=== PATIENT | female | born 2000 | race Caucasian/White ===

== ENCOUNTER 2022-11-03 16:32 | Inpatient (IN) ==
[2022-11-03] MEDS ORDERED: AMPICILLIN/SULBACTAM SOD 3,000 MG in 0.9 % SODIUM CHLORIDE 100 ML IV STA (17:42)
--- NOTE | 2022-11-03 17:56 | Emergency Department Note ---
Impression & Plan Facial cellulitis, Myositis, COVID ED Provider Note CHIEF COMPLAINT: Facial swelling HISTORY OF PRESENTING ILLNESS: This is a 22-year-old female who presents to the emergency department by private vehicle with complaint of left-sided facial pain and swelling that started last night and has been getting progressively worse today. Patient denies any injuries to the area and denies any known dental issues. She does note that she had 4 wisdom teeth removed a few weeks ago over winter, but has not had any issues since the surgery. She currently notes her pain level an 8/10 and describes it as aching and tightness. She denies any fevers or chills. She denies any sore throat or tightness in the throat and has not had any difficulty swallowing or breathing. She denies any swelling or pain around the gums or teeth and has not had any foul discharge in the mouth. She denies any known injury to the area preceding the infection. She does also note that she has been having some intermittent chest pain for the past 1 year, she did go to [facility] today regarding this and her facial swelling and had testing and lab work done for the chest pain work-up. She states that she passed out while having her blood drawn, she states she began to feel hot and sweaty and then started to pass out. No injuries. She denies any chest pain currently. She has not had any shortness of breath. REVIEW OF SYSTEMS: A complete 10 point review of systems was reviewed with the patient with pertinent positives and negatives as per history of present illness. All else were negative. PAST MEDICAL HISTORY: No significant past medical history, history of wisdom tooth extraction SOCIAL HISTORY: Lives at home, she is a [employer] student, denies tobacco use ALLERGIES: No known allergies PHYSICAL EXAM: CONSTITUTIONAL: Pleasant and cooperative. Nontoxic-appearing and in no acute distress. Well appearing and well nourished. HEENT: Normocephalic, atraumatic. PERRL, EOMI. TMs normal. Pharynx normal. Significant left-sided facial swelling which extends throughout the maxillary region to the jawline, with overlying erythema and warmth to the touch, tender to palpation. Indurated but no notable fluctuance, no pointing or drainage. No swelling or signs of abscess within the mouth, normal dentition. Mild trismus. NECK: Supple, full active range of motion without discomfort. No cervical adenopathy. No nuchal rigidity or meningismus. Trachea midline. RESPIRATORY: Clear to auscultation bilaterally with no wheezing, crackles, rhonchi or stridor. Equal expansion bilaterally. CARDIOVASCULAR: Regular rate and rhythm with no murmurs, rubs or gallops. Normal peripheral perfusion. No edema. GASTROINTESTINAL: Soft, nontender, nondistended. Bowel sounds present in all quadrants. MUSCULOSKELETAL: Full range of motion of all joints without discomfort. INTEGUMENTARY: No rash or other significant dermatologic conditions noted. NEUROLOGIC: Alert and oriented X 4 with normal affect. Cranial nerves II-XII grossly intact, no facial droop. No focal neurologic deficits noted. Normal speech. Normal gait observed. ED COURSE AND MEDICAL DECISION MAKING: CC: Patient presenting with complaint of facial swelling DIFFERENTIAL DIAGNOSIS: Includes, but not limited to facial cellulitis, dental abscess, Ludwigs angina, parotitis, osteomyelitis, sinus infection, peritonsillar abscess, myositis, vasovagal syncope, dehydration, electrolyte abnormality, cardiac causes, PE, neurologic causes, thyroid disorder, among others. INTERPRETATION OF LABS: Leukocytosis, no anemia, normal platelets, no significant electrolyte abnormalities, normal renal function, elevated T. bili with otherwise normal liver enzymes. Troponin negative. TSH within normal limits. UA appears contaminated with no signs of UTI. Urine negative. COVID test positive. EKG: Indication was chest pain. Shows normal sinus rhythm with sinus arrhythmia with a rate of 73 bpm, incomplete right bundle branch block, no ST elevation or depression, no ectopy by my interpretation. No previous EKGs available for comparison. MEDICATION RECONCILIATION: I attest that I [facility]. INITIAL VITAL SIGNS REVIEW: I reviewed the patient's initial vital signs and interpret them as follows: T: Afebrile; BP: Mildly hypertensive; HR: Within normal limits; RR: Within normal limits; Pulse Ox: Within normal limits on room air. MDM SUMMARY: Patient was evaluated at bedside, history and physical exam performed. Patient is alert and oriented, in no acute distress, resting calmly in stretcher. She is afebrile and nontoxic-appearing and hemodynamically stable. There is significant left-sided facial swelling with erythema and warmth, mild trismus, airway is patent. No significant swelling noted in the neck, no meningismus on exam. No adenopathy. Patient was primarily sent to ED from [facility] with concerns for the facial swelling. She was also being evaluated there for some chest pain ongoing for a year, and had a brief syncopal episode during outpatient lab draw today. She denies any chest pain currently. EKG was reviewed and shows normal sinus rhythm with no acute ischemic changes. Cardiac monitoring: An order was placed for continuous cardiac monitoring. The monitor shows a rate of 80s with normal sinus rhythm. Orders were placed for labs including troponin, UA and urine , chest x- ray, IV Unasyn to treat for cellulitis, CT soft tissue neck with IV contrast to evaluate for facial/jaw swelling. Patient discussed with Dr. Aldrich, who agrees with my assessment, plan, and disposition. Labs and imaging reviewed, labs notable for leukocytosis with no other significant abnormalities. Troponin is negative. TSH was within normal limits. She is not . COVID test was incidentally found to be positive. Chest x-ray was clear with no acute cardiopulmonary abnormalities. I have a low suspicion for acute coronary syndrome or PE related to her ongoing chest pain for the past year. Her syncopal episode was most likely vasovagal due to her blood draw. CT imaging demonstrates moderate left facial and upper neck inflammation consistent with cellulitis, with thickening of the left platysma muscle and enlargement of the left masseter muscle concerning for infectious myositis. No abscess. Airway patent. Patient reassessed multiple times throughout ED stay, she was noted to have a low-grade fever of 37.8 on reassessment of vital signs and feels that her pain is worsening. By my assessment, her left-sided facial swelling appears slightly worse and her trismus has slightly worsened as well. Given the abrupt development of the patient's facial swelling and apparent clinical worsening over the past few hours, I did feel that she warranted admission for close observation and continued IV antibiotics. I spoke on the phone with Dr. Ballesteros, oral surgery, who agreed that the patient should be admitted and he is happy to consult on her case and will see her in the morning. I spoke with Dr. Cm, [facility] Hospitalist, who agrees to evaluate the patient for admission. The patient was updated on all results and plan for admission, she was agreeable to this plan. The patient was stable at the time of admission. The chart was completed utilizing Dragon Speech voice recognition software. Grammatical errors, random word insertions, pronoun errors, and incomplete sentences are an occasional consequence of this system due to software limitations, ambient noise, and hardware issues. Any formal questions or concerns about the content, text, or information contained within the body of this dictation should be directly addressed to the nurse practitioner for clarification. Past Med/Surg History Medical History (Updated 11/04/22 @ 01:02 by KYLE Garcia) No significant past medical history Surgical History (Updated 11/03/22 @ 23:06 by Tasha Cm DO) History of wisdom tooth extraction Family History (Updated 11/03/22 @ 23:06 by Tasha Cm DO) Other No significant family history Social History (Updated 11/03/22 @ 23:06 by Tasha Cm DO) Smoking Status: Never smoker Second Hand Exposure: No; Do You Dip or Chew Tobacco: No; Tobacco Cessation Education Requested by Patient: No Hx Alcohol Use: Yes Alcohol type: wine Hx Substance Use: No Preferred Language: [place] Communication Ability: Effective Site Monitor Required: No Beliefs That Will Affect Care: None Current Living Situation: Other Current Living Situation Comment: Apartment with roommates Other Information That Helps Us Care for You: No Feels Safe at Home: Yes Safety Concerns: Feels Safe At This Time Assistive Devices: None Allergies Allergies Allergy/AdvReac Type Severity Reaction Status Date / Time No Known Allergies Allergy Unverified 11/03/22 21:03 Home Meds Home Medications Medication Instructions Recorded Confirmed No Known Home Medications 11/03/22 11/03/22 Results & Data (ED) Vital Signs Vital Signs - 24 hr 11/03/22 16:38 11/03/22 19:19 11/03/22 20:30 Temperature 36.6 C 37.8 C H Temperature Source Temporal Artery Scan Oral Pulse Rate 85 Pulse Rate [Apical] 72 Respiratory Rate 18 12 Respiratory Effort / Characteristics Non-Labored Spontaneous Non-Labored Spontaneous Respiratory Depth Normal Normal Respiratory Pattern Regular Blood Pressure 140/80 Blood Pressure [Left Arm] 108/57 L Blood Pressure Mean 100 Blood Pressure Mean [Left Arm] 74 Blood Pressure Position Sitting Pulse Oximetry 99 100 Oxygen Delivery Method Room Air Room Air Sepsis Recent Fever Within 48 Hours No Sepsis New/Unexplained Change in Mental Status No Sepsis Action Taken by Nursing No Action Required 11/03/22 20:30 11/03/22 20:33 Temperature Temperature Source Pulse Rate 82 Pulse Rate [Apical] 88 Respiratory Rate 19 18 Respiratory Effort / Characteristics Non-Labored Spontaneous Respiratory Depth Normal Respiratory Pattern Regular Blood Pressure Blood Pressure [Left Arm] 116/83 Blood Pressure Mean Blood Pressure Mean [Left Arm] 94 Blood Pressure Position Pulse Oximetry 99 99 Oxygen Delivery Method Room Air Room Air Sepsis Recent Fever Within 48 Hours Sepsis New/Unexplained Change in Mental Status Sepsis Action Taken by Nursing Laboratory Data 11/03/22 18:16 11/03/22 18:16 Lab Results 11/03/22 11/03/22 11/03/22 Range/Units 18:16 18:16 18:16 WBC 12.61 H (4.8-10.8) K/ul RBC 4.53 (4.20-5.40) M/uL Hgb 13.5 (12.0-16.0) g/dl Hct 39.4 (37.0-47.0) % MCV 87.0 (80.0-100.0) fL MCH 29.8 (25.0-34.0) pg MCHC 34.3 (32.0-36.0) g/dL RDW Std Deviation 40.8 (36.4-46.3) fL RDW Coeff of Gordon 13.0 (11.5-14.5) % Plt Count 281 (130-400) K/uL MPV 10.4 (9.4-12.4) fL Immature Gran % (Auto) 0.4 % Neut % (Auto) 76.7 % Lymph % (Auto) 13.0 % [place] % (Auto) 9.4 % Eos % (Auto) 0.1 % Baso % (Auto) 0.4 % Neut # (Auto) 9.67 H (1.40-6.50) K/uL Lymph # (Auto) 1.64 (1.2-3.4) K/uL [place] # (Auto) 1.19 H (0.11-0.59) K/uL Eos # (Auto) 0.01 (0-0.50) K/uL Baso # (Auto) 0.05 (0-0.2) K/uL Immature Gran # (Auto) 0.05 (0.01-0.20) K/uL Sodium 137 (136-145) mmol/L Potassium 3.8 (3.5-5.1) mmol/L Chloride 106 (98-107) mmol/L Carbon Dioxide 26 (21-32) mmol/L Anion Gap 5 (3-11) BUN 9 (6-23) mg/dl Creatinine 0.71 (0.6-1.2) mg/dl Est Cr Clr Drug Dosing 103.7 ml/min Est GFR ( Amer) 141.1 ml/min Est GFR (Non-Af Amer) 121.8 ml/min BUN/Creatinine Ratio 12.7 (10-20) Glucose 103 H (70-99(Fasting)) mg/dl Calcium 9.9 (8.5-10.1) mg/dl Total Bilirubin 1.9 H (0.2-1.0) mg/dl AST 14 (13-39) U/L ALT 8 (7-52) U/L Alkaline Phosphatase 62 (34-104) U/L Troponin I High Sens < 2.3 (0-14) pg/ml Total Protein 7.5 (6.0-8.3) gm/dl Albumin 4.5 (3.4-5.0) gm/dl Globulin 3.0 (2.5-4.0) gm/dl Albumin/Globulin Ratio 1.5 (0.9-2) TSH 1.108 (0.300-4.500) uIu/ml Administered Medications Ampicillin Sodium/Sulbactam Sodium 3,000 mg/ Sodium Chloride 108 mls @ 200 mls/hr IV Q6H CHERYLE; Protocol Stop: 11/14/22 00:00 Last Admin: 11/04/22 00:43 Dose: 200 mls/hr Documented By: MARA Lactated Ringer's (Lr) 1,000 mls @ 80 mls/hr IV .[id number] CHERYLE Stop: 11/04/22 11:47 Last Infusion: 11/04/22 00:44 Dose: 0 mls/hr Documented By: Admin: 11/03/22 23:18 Dose: 80 mls/hr Documented By: MARA Discontinued Medications Ampicillin Sodium/Sulbactam Sodium 3,000 mg/ Sodium Chloride 108 mls @ 200 mls/hr IV NOW STA; Protocol Stop: 11/03/22 18:14 Last Infusion: 11/03/22 19:50 Dose: 0 mls/hr Documented By: breaster: 11/03/22 18:45 Dose: 200 mls/hr Documented By: KACIK Sodium Chloride (Nss 1000ml) 1,000 mls @ 999 mls/hr IV .Q1H1M ONE Stop: 11/03/22 21:38 Last Infusion: 11/03/22 23:53 Dose: 0 mls/hr Documented By: Admin: 11/03/22 21:18 Dose: 999 mls/hr Documented By: MED Sodium Chloride (Nss 1000ml) 1,000 mls @ 125 mls/hr IV .Q8H CHERYLE Stop: 12/03/22 20:44 Last Admin: 11/03/22 23:53 Dose: Not Given Documented By: YOSEPH Ioversol (Optiray 350 100ml) 87 ml IV ONCE ONE Stop: 11/03/22 19:28 Last Admin: 11/03/22 19:28 Dose: 87 ml Documented By: [facility] Ketorolac Tromethamine (Ketorolac Tromethamine 15 Mg/Ml Vial) 15 mg IV NOW STA Stop: 11/03/22 20:39 Last Admin: 11/03/22 21:21 Dose: 15 mg Documented By: [facility] Imaging Data Radiologist's Impression: Soft Tissue Neck CT 11/03/22 17:42 CT OF THE NECK WITH IV CONTRAST CLINICAL HISTORY: left facial swelling/cellulitis COMPARISON STUDY: No previous studies for comparison. TECHNIQUE: Following IV administration of 87 mL of Optiray, helical axial images of the neck were obtained. Sagittal and coronal reconstructions were viewed. Automated exposure control was utilized for the study. A dose lowering technique was utilized adhering to the principles of ALARA. CT DOSE: 297.01 mGy.cm FINDINGS: Visualized portions of the intracranial contents are unremarkable. The sinuses are clear. Mastoid air cells are clear. Parotid and submandibular glands are normal. The epiglottis is normal. There is moderate left inferior facial inflammation with subcutaneous stranding and asymmetric thickening of the left platysma muscle. There is fluid deep to the left platysma muscle. Asymmetric enlargement and hypodensity within left masseter muscle is noted. There is no rim-enhancing fluid collection to suggest an abscess. There are findings suggestive of relatively recent wisdom tooth removal. There is no soft tissue gas within the neck. The visualized airway is patent. Lung apices are clear. Major vasculature of the neck is patent. Prominent left cervical lymph nodes are likely reactive. IMPRESSION: Findings suggestive of relatively recent wisdom tooth removal. Moderate left facial and upper neck inflammation consistent with cellulitis with asymmetric thickening of the left platysma muscle, adjacent fluid and enlargement of the left masseter muscle which may reflect an infectious myositis. No rim-enhancing fluid collection to suggest abscess. ACT 112: Negative or not required by law. Electronically signed by: Zachery Dooley M.D. 11/03/2022 7:46 PM Chest X-Ray 11/03/22 17:46 XR chest 1V portable CLINICAL HISTORY: Atypical chest pain. COMPARISON STUDY: No previous studies for comparison. FINDINGS: Lung volumes are normal. Lungs are clear. There is no pneumothorax or pleural effusion. Cardiac size is normal. Mediastinal contours are normal. There is no evidence for pulmonary edema. IMPRESSION: No acute cardiopulmonary findings. ACT 112: Negative or not required by law. Electronically signed by: Zachery Dooley M.D. 11/03/2022 6:11 PM Discharge Plan Visit Data Chief Complaint: Dental/Oral Stated Complaint: REF BY DOC,JAW SWOLLEN,HEART PAIN ED Provider: Damien Aldrich ED Midlevel Provider: Coby Downs Discharge Problem: Facial cellulitis, Myositis, COVID Patient Disposition: Admitted As Inpatient Condition: Good Discharge Instructions Interventions: ED Discharge Assessment Last Done: 11/03/22 22:42
--- NOTE | 2022-11-03 18:13 | XRay Report ---
XR chest 1V portable CLINICAL HISTORY: Atypical chest pain. COMPARISON STUDY: No previous studies for comparison. FINDINGS: Lung volumes are normal. Lungs are clear. There is no pneumothorax or pleural effusion. Car diac size is normal. Mediastinal contours are normal. There is no evidence for pulmonary edema. IMPRESSION: No acute cardiopulmonary findings. ACT 112: Negative or not required by law. Electronically signed by: Zachery Dooley M.D. 11/03/2022 6:11 PM
[2022-11-03 18:40] LABS: Basophils # (auto) 0.05 K/uL (0-0.2); Basophils % (auto) 0.4 %; Eosinophils # (auto) 0.01 K/uL (0-0.50); Eosinophils % (auto) 0.1 %; Hematocrit (blood only) 39.4 % (37.0-47.0); Hemoglobin 13.5 g/dl (12.0-16.0); Immature Granulocytes # (auto) 0.05 K/uL (0.01-0.20); Immature Granulocytes % (auto) 0.4 %; Lymphocytes # (auto) 1.64 K/uL (1.2-3.4); Mean Corpuscular Hemoglobin 29.8 pg (25.0-34.0); Mean Corpuscular Hgb Conc 34.3 g/dL (32.0-36.0); Mean Platelet Volume 10.4 fL (9.4-12.4); Monocytes # (auto) 1.19 K/uL (0.11-0.59); Monocytes % (auto) 9.4 %; Neutrophils # (auto) 9.67 K/uL (1.40-6.50); Neutrophils % (auto) 76.7 %; Platelet Count 281 K/uL (130-400); RDW Standard Deviation 40.8 fL (36.4-46.3); Red Blood Count 4.53 M/uL (4.20-5.40); White Blood Count 12.61 K/ul (4.8-10.8)
[2022-11-03 19:06] LABS: Alanine Aminotransferase 8 U/L (7-52); Albumin Globulin Ratio 1.5 (0.9-2); Albumin Level 4.5 gm/dl (3.4-5.0); Alkaline Phosphatase 62 U/L (34-104); Aspartate Aminotransferase 14 U/L (13-39); BUN Creatinine Ratio 12.7 (10-20); Bilirubin,Total 1.9 mg/dl (0.2-1.0); Blood Urea Nitrogen 9 mg/dl (6-23); Calcium 9.9 mg/dl (8.5-10.1); Carbon Dioxide 26 mmol/L (21-32); Creatinine Clr Calc Pharmacy 103.7 ml/min; Est GFR (African American) 141.1 ml/min; Est GFR (Non-African American) 121.8 ml/min; Glucose 103 mg/dl (70-99(Fasting)); Total Protein 7.5 gm/dl (6.0-8.3)
[2022-11-03 19:22] LABS: Appearance Urine Clear (Clear); Bacteria Urine Automated Negative (Negative); Bilirubin Urine Negative (Negative); Blood Urine Negative (Negative); Color Urine Yellow; Glucose Urine UA Negative (Negative); Ketones Urine Negative (Negative); Leukocyte Esterase Urine Trace (Negative); Nitrite Urine Negative (Negative); Protein Urine Negative (Negative); Urobilinogen Urine Negative (Negative)
[2022-11-03] MEDS ORDERED: OPTIRAY 350 100ml IV ONE (19:27)
[2022-11-03 19:32] LABS: Anion Gap 5 (3-11); Chloride 106 mmol/L (98-107); Potassium 3.8 mmol/L (3.5-5.1); Sodium 137 mmol/L (136-145)
[2022-11-03 19:35] LABS: Troponin I High Sensitivity < 2.3 pg/ml (0-14)
[2022-11-03 19:45] LABS: Pregnancy Test, Urine Negative (Negative)
--- NOTE | 2022-11-03 19:49 | CT Scan Report ---
CT OF THE NECK WITH IV CONTRAST CLINICAL HISTORY: left facial swelling/cellulitis COMPARISON STUDY: No previous studies for comparison. TECHNIQUE: Following IV administration of 87 mL of Optiray, helical axial images of the neck were ob tained. Sagittal and coronal reconstructions were viewed. Automated exposure control was utilized f or the study. A dose lowering technique was utilized adhering to the principles of ALARA. CT DOSE: 297.01 mGy.cm FINDINGS: Visualized portions of the intracranial contents are unremarkable. The sinuses are clear. Mastoid air cells are clear. Parotid and submandibular glands are normal. The epiglottis is normal. T here is moderate left inferior facial inflammation with subcutaneous stranding and asymmetric thicken ing of the left platysma muscle. There is fluid deep to the left platysma muscle. Asymmetric enlargem ent and hypodensity within left masseter muscle is noted. There is no rim-enhancing fluid collection to suggest an abscess. There are findings suggestive of relatively recent wisdom tooth removal. There is no soft tissue gas within the neck. The visualized airway is patent. Lung apices are clear. Major vasculature of the neck is patent. Prominent left cervical lymph nodes are likely reactive. IMPRESSION: Findings suggestive of relatively recent wisdom tooth removal. Moderate left facial and upper neck inflammation consistent with cellulitis with asymmetric thickening of the left platysma mu scle, adjacent fluid and enlargement of the left masseter muscle which may reflect an infectious myos itis. No rim-enhancing fluid collection to suggest abscess. ACT 112: Negative or not required by law. Electronically signed by: Zachery Dooley M.D. 11/03/2022 7:46 PM
[2022-11-03] MEDS ORDERED: SODIUM CHLORIDE 0.9% 1000ML 1,000 ML IV ONE (20:38)
[2022-11-03] MEDS ORDERED: KETOROLAC TROMETHAMINE 15 MG/ML VIAL IV STA (20:38)
[2022-11-03] MEDS ORDERED: SODIUM CHLORIDE 0.9% 1000ML 1,000 ML IV SCH (20:45)
--- NOTE | 2022-11-03 20:51 | History & Physical Report ---
Date of Service November 03, 2022 Assessment & Plan (1) Myositis: Plan: 22yo female with recent history of wisdom teeth extraction x 4 approximately 2 weeks ago presenting with left sided facial pain and swelling. Patient afebrile, HD stable, overall non-toxic in appearance. She does have significant swelling and erythema of her left face with some tenderness of left neck as well. WBC=12.61 Patient is POSITIVE for Covid-19 which may be cause of her possible myositis CT as above with swelling, possible infectious myositis -Admit to medical -Unasyn 2gm IV q 6 -Toradol PRN pain -Tylenol PRN fever -OMFS Consultation appreciated (2) COVID: Plan: Patient is POSITIVE for Covid-19 infection. Afebrile, no respiratory complaints at present. Possible cause for myositis -Maintain isolation -Monitor respiratory status -Tylenol PRN History of Present Illness Chief Complaint: Left facial swelling Primary Care Provider: Provider Outside Elise Reis is a 22yo female with recent extraction of 4 impacted wisdom teeth - performed approximately 2 months ago in [place], [place]. She reports that the surgery went well with no complications. She did state that she had ongoing oral pain at the extraction sites for approximately one month after her surgery. Last night 11/02/22 around 23:00 she developed some pain on the left side of her face. She noticed some swelling that started early this morning 11/03/22 around 02:00. Her swelling has progressed. She has some difficulty opening her mouth fully. She had some subjective fevers as well. Denies chest pain, cough, SOB, abdominal pain, nausea, vomiting, diarrhea or constipation. No pain or difficulty swallowing. No change in voice. No numbness or swelling of her mouth, throat or sublingual area. Upon arrival to the ER she is afebrile, HD stable, NAD. ER Course: Unasyn NSS x 1L Toradol 15mg Allergies Allergy/AdvReac Type Severity Reaction Status Date / Time No Known Allergies Allergy Unverified 11/03/22 21:03 Home Medications Medication Instructions Recorded Confirmed Type No Known Home Medications 11/03/22 11/03/22 History Past Med/Surg History Medical History (Updated 11/03/22 @ 23:14 by Tasha Cm DO) No significant past medical history Surgical History (Updated 11/03/22 @ 23:06 by Tasha Cm DO) History of wisdom tooth extraction Family History (Updated 11/03/22 @ 23:06 by Tasha Cm DO) Other No significant family history Social History (Updated 11/03/22 @ 23:06 by Tasha Cm DO) Smoking Status: Never smoker Hx Alcohol Use: No Hx Substance Use: No Preferred Language: Spanish Feels Safe at Home: Yes Review of Systems Review of Systems: All systems reviewed & are unremarkable except as noted in HPI & below Physical Exam Physical Exam: General: patient resting comfortably, NAD, non-toxic in appearance, AA&O x 4 Skin: warm, dry, intact, no rashes or lesions HEENT: NC/AT, PERRL, EOMI, anicteric sclera, conjunctiva without injection, external ear normal to inspection and nontender, nares patent, mild trismus, moist mucus membranes, dentition intact, no oropharyngeal lesions, neck supple, trachea midline, no LAD, no thyromegaly, no JVD, significant swelling of the left face, masseter with redness, tender to palpation. Some mild tenderness with palpation of left neck. Left mandibular extraction site seems to have granulation tissue present, no bleeding, no obvious parotid os swelling Heart: +S1/S2, regular, no m/r/g Lungs: equal air entry bilaterally, no rales/rhonchi/wheezes Abd: +BS, soft, NT/ND, no masses/organomegaly/ascites Ext: warm, 2+ pulses in UE/LE bilaterally, no clubbing/cyanosis or edema Neuro: nonfocal, patient AA&O x 4, speech intact, no facial droop, moving all extremities on command with equal strength 5/5 Results & Data Results & Data ([facility]) Vital Signs (Past 12 Hours) Vital Signs Temp Pulse Pulse Resp BP BP Pulse Ox 11/03/22 20:33 82 18 99 11/03/22 20:30 88 19 116/83 99 11/03/22 20:30 37.8 C H 11/03/22 19:19 72 12 108/57 L 100 11/03/22 16:38 36.6 C 85 18 140/80 99 O2 Del Method 11/03/22 20:33 Room Air 02/06/23 20:30 Room Air 11/03/22 20:30 11/03/22 19:19 Room Air 11/03/22 16:38 Room Air Laboratory Results Laboratory Results WBC 12.61 K/ul (4.8-10.8) H 11/03/22 18:16 RBC 4.53 M/uL (4.20-5.40) 11/03/22 18:16 Hgb 13.5 g/dl (12.0-16.0) 11/03/22 18:16 Hct 39.4 % (37.0-47.0) 11/03/22 18:16 MCV 87.0 fL (80.0-100.0) 11/03/22 18:16 MCH 29.8 pg (25.0-34.0) 11/03/22 18:16 MCHC 34.3 g/dL (32.0-36.0) 11/03/22 18:16 RDW Std Deviation 40.8 fL (36.4-46.3) 11/03/22 18:16 RDW Coeff of Gordon 13.0 % (11.5-14.5) 11/03/22 18:16 Plt Count 281 K/uL (130-400) 11/03/22 18:16 MPV 10.4 fL (9.4-12.4) 11/03/22 18:16 Immature Gran % (Auto) 0.4 % 11/03/22 18:16 Neut % (Auto) 76.7 % 11/03/22 18:16 Lymph % (Auto) 13.0 % 11/03/22 18:16 Winkler % (Auto) 9.4 % 11/03/22 18:16 Eos % (Auto) 0.1 % 11/03/22 18:16 Baso % (Auto) 0.4 % 11/03/22 18:16 Neut # (Auto) 9.67 K/uL (1.40-6.50) H 11/03/22 18:16 Lymph # (Auto) 1.64 K/uL (1.2-3.4) 11/03/22 18:16 Winkler # (Auto) 1.19 K/uL (0.11-0.59) H 11/03/22 18:16 Eos # (Auto) 0.01 K/uL (0-0.50) 11/03/22 18:16 Baso # (Auto) 0.05 K/uL (0-0.2) 11/03/22 18:16 Immature Gran # (Auto) 0.05 K/uL (0.01-0.20) 11/03/22 18:16 Sodium 137 mmol/L (136-145) 11/03/22 18:16 Potassium 3.8 mmol/L (3.5-5.1) 11/03/22 18:16 Chloride 106 mmol/L (98-107) 11/03/22 18:16 Carbon Dioxide 26 mmol/L (21-32) 11/03/22 18:16 Anion Gap 5 (3-11) 11/03/22 18:16 BUN 9 mg/dl (6-23) 11/03/22 18:16 Creatinine 0.71 mg/dl (0.6-1.2) 11/03/22 18:16 Est Cr Clr Drug Dosing 103.7 ml/min 11/03/22 18:16 Est GFR ( Amer) 141.1 ml/min 11/03/22 18:16 Est GFR (Non-Af Amer) 121.8 ml/min 11/03/22 18:16 BUN/Creatinine Ratio 12.7 (10-20) 11/03/22 18:16 Glucose 103 mg/dl (70-99(Fasting)) H 11/03/22 18:16 Calcium 9.9 mg/dl (8.5-10.1) 11/03/22 18:16 Total Bilirubin 1.9 mg/dl (0.2-1.0) H 11/03/22 18:16 AST 14 U/L (13-39) 11/03/22 18:16 ALT 8 U/L (7-52) 11/03/22 18:16 Alkaline Phosphatase 62 U/L (34-104) 11/03/22 18:16 Troponin I High Sens < 2.3 pg/ml (0-14) 11/03/22 18:16 Total Protein 7.5 gm/dl (6.0-8.3) 11/03/22 18:16 Albumin 4.5 gm/dl (3.4-5.0) 11/03/22 18:16 Globulin 3.0 gm/dl (2.5-4.0) 11/03/22 18:16 Albumin/Globulin Ratio 1.5 (0.9-2) 11/03/22 18:16 TSH 1.108 uIu/ml (0.300-4.500) 11/03/22 18:16 Urine Color Yellow 11/03/22 Unknown Urine Appearance Clear (Clear) 11/03/22 Unknown Urine pH 6.0 (4.5-7.5) 11/03/22 Unknown Ur Specific [place] 1.010 (1.000-1.030) 11/03/22 Unknown Urine Protein Negative (Negative) 11/03/22 Unknown Urine Glucose (UA) Negative (Negative) 11/03/22 Unknown Urine Ketones Negative (Negative) 11/03/22 Unknown Urine Blood Negative (Negative) 11/03/22 Unknown Urine Nitrite Negative (Negative) 11/03/22 Unknown Urine Bilirubin Negative (Negative) 11/03/22 Unknown Urine Urobilinogen Negative (Negative) 11/03/22 Unknown Ur Leukocyte Esterase Trace (Negative) H 11/03/22 Unknown Urine WBC (Auto) 1-5 /hpf (0-5) 11/03/22 Unknown Urine RBC (Auto) 5-10 /hpf (0-4) H 11/03/22 Unknown U Hyaline Cast (Auto) 1-5 /lpf (0-5) 11/03/22 Unknown U Epithel Cells (Auto) 10-20 /lpf (0-5) H 11/03/22 Unknown Urine Bacteria (Auto) Negative (Negative) 11/03/22 Unknown Urine Test Negative (Negative) 11/03/22 Unknown SARS-CoV-2, RNA, NAAT POSITIVE (NEGATIVE) A* 11/03/22 21:25 Impressions Soft Tissue Neck CT 11/03/22 17:42 CT OF THE NECK WITH IV CONTRAST CLINICAL HISTORY: left facial swelling/cellulitis COMPARISON STUDY: No previous studies for comparison. TECHNIQUE: Following IV administration of 87 mL of Optiray, helical axial images of the neck were obtained. Sagittal and coronal reconstructions were viewed. Automated exposure control was utilized for the study. A dose lowering technique was utilized adhering to the principles of ALARA. CT DOSE: 297.01 mGy.cm FINDINGS: Visualized portions of the intracranial contents are unremarkable. The sinuses are clear. Mastoid air cells are clear. Parotid and submandibular glands are normal. The epiglottis is normal. There is moderate left inferior facial inflammation with subcutaneous stranding and asymmetric thickening of the left platysma muscle. There is fluid deep to the left platysma muscle. Asymmetric enlargement and hypodensity within left masseter muscle is noted. There is no rim-enhancing fluid collection to suggest an abscess. There are findings suggestive of relatively recent wisdom tooth removal. There is no soft tissue gas within the neck. The visualized airway is patent. Lung apices are clear. Major vasculature of the neck is patent. Prominent left cervical lymph nodes are likely reactive. IMPRESSION: Findings suggestive of relatively recent wisdom tooth removal. Moderate left facial and upper neck inflammation consistent with cellulitis with asymmetric thickening of the left platysma muscle, adjacent fluid and enlargement of the left masseter muscle which may reflect an infectious myosit is. No rim-enhancing fluid collection to suggest abscess. ACT 112: Negative or not required by law. Electronically signed by: Zachery Dooley M.D. 11/03/2022 7:46 PM Chest X-Ray 11/03/22 17:46 XR chest 1V portable CLINICAL HISTORY: Atypical chest pain. COMPARISON STUDY: No previous studies for comparison. FINDINGS: Lung volumes are normal. Lungs are clear. There is no pneumothorax or pleural effusion. Cardiac size is normal. Mediastinal contours are normal. There is no evidence for pulmonary edema. IMPRESSION: No acute cardiopulmonary findings. ACT 112: Negative or not required by law. Electronically signed by: Zachery Dooley M.D. 11/03/2022 6:11 PM PG Care Time/CCT Total # of Minutes Spent Total Time Spent with Patient: Total time spent is greater than 50% in coordination of care (as documented) at patient's floor/unit and/or counseling patient: Coding Level of Care Code 26760 INT INP/OBS CARE 2/55MIN Diagnoses Myositis M60.9 COVID U07.1
[2022-11-03] MEDS ORDERED: ONDANSETRON INJ 2 MG/ML 2 ML VIAL IV PRN (23:18)
[2022-11-03] MEDS ORDERED: ACETAMINOPHEN 325 MG TAB PO PRN (23:18)
[2022-11-03] MEDS ORDERED: LACTATED RINGER'S 1,000 ML IV SCH (23:18)
[2022-11-03] MEDS ORDERED: KETOROLAC TROMETHAMINE 15 MG/ML VIAL IV PRN (23:18)
[2022-11-04] MEDS: AMPICILLIN/SULBACTAM SOD 3,000 MG in 0.9 % SODIUM CHLORIDE 100 ML IV SCH ×5 (00:43→23:48)
[2022-11-04 06:15] LABS: Hemoglobin 11.4 g/dl (12.0-16.0); Mean Corpuscular Hemoglobin 29.3 pg (25.0-34.0); Mean Corpuscular Hgb Conc 33.5 g/dL (32.0-36.0); Mean Corpuscular Volume 87.4 fL (80.0-100.0); Mean Platelet Volume 10.6 fL (9.4-12.4); Platelet Count 236 K/uL (130-400); RDW Coefficient of Variation 13.2 % (11.5-14.5); RDW Standard Deviation 42.4 fL (36.4-46.3); Red Blood Count 3.89 M/uL (4.20-5.40); White Blood Count 10.67 K/ul (4.8-10.8)
[2022-11-04 06:34] LABS: BUN Creatinine Ratio 10.1 (10-20); Calcium 8.5 mg/dl (8.5-10.1); Creatinine Clr Calc Pharmacy 106.7 ml/min; Est GFR (African American) 144.2 ml/min; Est GFR (Non-African American) 124.4 ml/min; Potassium 3.4 mmol/L (3.5-5.1)
--- NOTE | 2022-11-04 08:18 | Electrocardiogram Report ---
Test Reason : Blood Pressure : / mmHG Vent. Rate : 073 BPM Atrial Rate : 073 BPM P-R Int : 146 ms QRS Dur : 094 ms QT Int : 378 ms P-R-T Axes : 046 086 050 degrees QTc Int : 416 ms Normal sinus rhythm with sinus arrhythmia Incomplete right bundle branch block Normal ECG No previous ECGs available Confirmed by Tuan Rubio ([id number]) on 11/04/2022 8:18:10 AM Referred By: Leona Manzo Confirmed By:Tuan Rubio
--- NOTE | 2022-11-04 09:58 | Oral/Maxillofacial Consult ---
Date of Consultation November 04, 2022 History of Present Illness Attending Physician: Amy Garcia MD History of Present Illness Oral Maxillofacial Surgery Exam Present Complaint: I have pain/swelling/drainage from my infected lower left wisdom tooth extraction site Symptoms have been ongoing for a while HISTORY OF PRESENTING ILLNESS: This is a 22-year-old female who presents to the emergency department by private vehicle with complaint of left-sided facial pain and swelling that started last night and has been getting progressively worse today. Patient denies any injuries to the area and denies any known dental issues. She does note that she had 4 wisdom teeth removed a few weeks ago over winter, but has not had any issues since the surgery. She currently notes her pain level an 8/10 and describes it as aching and tightness. She denies any fevers or chills. She denies any sore throat or tightness in the throat and has not had any difficulty swallowing or breathing. She denies any swelling or pain around the gums or teeth and has not had any foul discharge in the mouth. She denies any known injury to the area preceding the infection. She does also note that she has been having some intermittent chest pain for the past 1 year, she did go to [facility] today regarding this and her facial swelling and had testing and lab work done for the chest pain work-up. She states that she passed out while having her blood drawn, she states she began to feel hot and sweaty and then started to pass out. No injuries. She denies any chest pain currently. She has not had any shortness of breath. Plan; For OR this afternoon for I&D NPO COVID + protocol Imaging Data Soft Tissue Neck CT 11/03/22 17:42 FINDINGS: Visualized portions of the intracranial contents are unremarkable. The sinuses are clear. Mastoid air cells are clear. Parotid and submandibular glands are normal. The epiglottis is normal. There is moderate left inferior facial inflammation with subcutaneous stranding and asymmetric thickening of the left platysma muscle. There is fluid deep to the left platysma muscle. Asymmetric enlargement and hypodensity within left masseter muscle is noted. There is no rim-enhancing fluid collection to suggest an abscess. There are findings suggestive of relatively recent wisdom tooth removal. There is no soft tissue gas within the neck. The visualized airway is patent. Lung apices are clear. Major vasculature of the neck is patent. Prominent left cervical lymph nodes are likely reactive. IMPRESSION: Findings suggestive of relatively recent wisdom tooth removal. Moderate left facial and upper neck inflammation consistent with cellulitis with asymmetric thickening of the left platysma muscle, adjacent fluid and enlargement of the left masseter muscle which may reflect an infectious myositis. No rim-enhancing fluid collection to suggest abscess. I reviewed the CT --clinical there is drainage and an I&D is needed today. Soft tissue: There is drainage from the extraction site # 17, moderate swelling left cheek and subperiosteal area floor of the mouth, tongue, hard/soft palate, posterior pharyngeal area all with in normal limits, no pathology or abnormal findings noted. No lesions noted that require follow up or Bx. Oral Care: Overall oral care is good Occlusion: Class I TMJ exam: some what limited opening secondary to infection Periodontal exam: Healthy gingival tissue without evidence of periodontal pathology. Head/Neck exam: Neck is supple, FROM, Able to extend and flex neck w/o difficulty, no masses, no abnormalities, no airway issues, Treatment Plan: Elise needs an I&D of the left mandibular space LUAN Set up with general anesthesia in hospital due to complexity of the procedure I reviewed the treatment plan and consent with the patient Understanding was expressed. Time was given for questions regarding the surgery, risks and post op care. Discussed alternative to treatment--procedure as planned, Do not do surgery Risks discussed: Bleeding,Pain,swelling,infection, dry socket, delayed healing, nerve injury to face,lips,tongue,chin area which could be permanent (rare). TMJ, jaw stiffness, change in bite (rare), ear pain (referred). Sinus problems like fistula or infection. Home care reviewed: tooth brushing, rinsing, follow up care with Dr Ballesteros. diet=[id number] dental. Discussed activity level, driving/work while on Rx pain Meds. Surgery to be set up this afternoon with COVID + protocol in the OR with [place] REVIEW OF SYSTEMS: A complete 10 point review of systems was reviewed with the patient with pertinent positives and negatives as per history of present illness. All else were negative. PAST MEDICAL HISTORY: No significant past medical history, history of wisdom tooth extraction SOCIAL HISTORY: Lives at home, she is a [employer] student, denies tobacco use ALLERGIES: No known allergies PHYSICAL EXAM: CONSTITUTIONAL: Pleasant and cooperative. Nontoxic-appearing and in no acute distress. Well appearing and well nourished. HEENT: Normocephalic, atraumatic. PERRL, EOMI. TMs normal. Pharynx normal. Significant left-sided facial swelling which extends throughout the maxillary region to the jawline, with overlying erythema and warmth to the touch, tender to palpation. Indurated but no notable fluctuance, no pointing or drainage. No swelling or signs of abscess within the mouth, normal dentition. Mild trismus. NECK: Supple, full active range of motion without discomfort. No cervical adenopathy. No nuchal rigidity or meningismus. Trachea midline. RESPIRATORY: Clear to auscultation bilaterally with no wheezing, crackles, rhonchi or stridor. Equal expansion bilaterally. CARDIOVASCULAR: Regular rate and rhythm with no murmurs, rubs or gallops. Normal peripheral perfusion. No edema. GASTROINTESTINAL: Soft, nontender, nondistended. Bowel sounds present in all quadrants. MUSCULOSKELETAL: Full range of motion of all joints without discomfort. INTEGUMENTARY: No rash or other significant dermatologic conditions noted. NEUROLOGIC: Alert and oriented X 4 with normal affect. Cranial nerves II-XII grossly intact, no facial droop. No focal neurologic deficits noted. Normal speech. Normal gait observed. INTERPRETATION OF LABS: Leukocytosis, no anemia, normal platelets, no significant electrolyte abnormalities, normal renal function, elevated T. bili with otherwise normal liver enzymes. Troponin negative. TSH within normal limits. UA appears contaminated with no signs of UTI. Urine negative. COVID test positive. MDM SUMMARY: Patient was evaluated at bedside, history and physical exam performed. Patient is alert and oriented, in no acute distress, resting calmly in stretcher. She is afebrile and nontoxic-appearing and hemodynamically stable. There is significant left-sided facial swelling with erythema and warmth, mild trismus, airway is patent. No significant swelling noted in the neck, no meningismus on exam. No adenopathy. Patient was primarily sent to ED from [facility] with concerns for the facial swelling. She was also being evaluated there for some chest pain ongoing for a year, and had a brief syncopal episode during outpatient lab draw today. She denies any chest pain currently. EKG was reviewed and shows normal sinus rhythm with no acute ischemic changes. Cardiac monitoring: An order was placed for continuous cardiac monitoring. The monitor shows a rate of 80s with normal sinus rhythm. Orders were placed for labs including troponin, UA and urine , chest x- ray, IV Unasyn to treat for cellulitis, CT soft tissue neck with IV contrast to evaluate for facial/jaw swelling. Patient discussed with Dr. Aldrich, who agrees with my assessment, plan, and disposition. Labs and imaging reviewed, labs notable for leukocytosis with no other significant abnormalities. Troponin is negative. TSH was within normal limits. She is not . COVID test was incidentally found to be positive. Chest x-ray was clear with no acute cardiopulmonary abnormalities. I have a low suspicion for acute coronary syndrome or PE related to her ongoing chest pain for the past year. Her syncopal episode was most likely vasovagal due to her blood draw. CT imaging demonstrates moderate left facial and upper neck inflammation consistent with cellulitis, with thickening of the left platysma muscle and enlargement of the left masseter muscle concerning for infectious myositis. No abscess. Airway patent. Patient reassessed multiple times throughout ED stay, she was noted to have a low-grade fever of 37.8 on reassessment of vital signs and feels that her pain is worsening. By my assessment, her left-sided facial swelling appears slightly worse and her trismus has slightly worsened as well. Given the abrupt development of the patient's facial swelling and apparent clinical worsening over the past few hours, I did feel that she warranted admission for close observation and continued IV antibiotics. I spoke on the phone with Dr. Ballesteros, oral surgery, who agreed that the patient should be admitted and he is happy to consult on her case and will see her in the morning. I spoke with Dr. Cm, [facility] Hospitalist, who agrees to evaluate the patient for admission. The patient was updated on all results and plan for admission, she was agreeable to this plan. The patient was stable at the time of admission. Impression & Plan Facial cellulitis, Myositis, COVID ED Provider Note CHIEF COMPLAINT: Facial swelling HISTORY OF PRESENTING ILLNESS: This is a 22-year-old female who presents to the emergency department by private vehicle with complaint of left-sided facial pain and swelling that started last night and has been getting progressively worse today. Patient denies any injuries to the area and denies any known dental issues. She does note that she had 4 wisdom teeth removed a few weeks ago over winter, but has not had any issues since the surgery. She currently notes her pain level an 8/10 and describes it as aching and tightness. She denies any fevers or chills. She denies any sore throat or tightness in the throat and has not had any difficulty swallowing or breathing. She denies any swelling or pain around the gums or teeth and has not had any foul discharge in the mouth. She denies any known injury to the area preceding the infection. She does also note that she has been having some intermittent chest pain for the past 1 year, she did go to [facility] today regarding this and her facial swelling and had testing and lab work done for the chest pain work-up. She states that she passed out while having her blood drawn, she states she began to feel hot and sweaty and then started to pass out. No injuries. She denies any chest pain currently. She has not had any shortness of breath. REVIEW OF SYSTEMS: A complete 10 point review of systems was reviewed with the patient with pertinent positives and negatives as per history of present illnes s. All else were negative. PAST MEDICAL HISTORY: No significant past medical history, history of wisdom tooth extraction SOCIAL HISTORY: Lives at home, she is a [employer] student, denies tobacco use ALLERGIES: No known allergies PHYSICAL EXAM: CONSTITUTIONAL: Pleasant and cooperative. Nontoxic-appearing and in no acute distress. Well appearing and well nourished. HEENT: Normocephalic, atraumatic. PERRL, EOMI. TMs normal. Pharynx normal. Significant left-sided facial swelling which extends throughout the maxillary region to the jawline, with overlying erythema and warmth to the touch, tender to palpation. Indurated but no notable fluctuance, no pointing or drainage. No swelling or signs of abscess within the mouth, normal dentition. Mild trismus. NECK: Supple, full active range of motion without discomfort. No cervical adenopathy. No nuchal rigidity or meningismus. Trachea midline. RESPIRATORY: Clear to auscultation bilaterally with no wheezing, crackles, rhonchi or stridor. Equal expansion bilaterally. CARDIOVASCULAR: Regular rate and rhythm with no murmurs, rubs or gallops. Normal peripheral perfusion. No edema. GASTROINTESTINAL: Soft, nontender, nondistended. Bowel sounds present in all quadrants. MUSCULOSKELETAL: Full range of motion of all joints without discomfort. INTEGUMENTARY: No rash or other significant dermatologic conditions noted. NEUROLOGIC: Alert and oriented X 4 with normal affect. Cranial nerves II-XII grossly intact, no facial droop. No focal neurologic deficits noted. Normal speech. Normal gait observed. ED COURSE AND MEDICAL DECISION MAKING: CC: Patient presenting with complaint of facial swelling DIFFERENTIAL DIAGNOSIS: Includes, but not limited to facial cellulitis, dental abscess, Ludwigs angina, parotitis, osteomyelitis, sinus infection, peritonsillar abscess, myositis, vasovagal syncope, dehydration, electrolyte abnormality, cardiac causes, PE, neurologic causes, thyroid disorder, among others. INTERPRETATION OF LABS: Leukocytosis, no anemia, normal platelets, no significant electrolyte abnormalities, normal renal function, elevated T. bili with otherwise normal liver enzymes. Troponin negative. TSH within normal limits. UA appears contaminated with no signs of UTI. Urine negative. COVID test positive. EKG: Indication was chest pain. Shows normal sinus rhythm with sinus arrhythmia with a rate of 73 bpm, incomplete right bundle branch block, no ST elevation or depression, no ectopy by my interpretation. No previous EKGs available for comparison. MEDICATION RECONCILIATION: I attest that I have personally reviewed the patient's current medication list. INITIAL VITAL SIGNS REVIEW: I reviewed the patient's initial vital signs and interpret them as follows: T: Afebrile; BP: Mildly hypertensive; HR: Within normal limits; RR: Within normal limits; Pulse Ox: Within normal limits on room air. MDM SUMMARY: Patient was evaluated at bedside, history and physical exam performed. Patient is alert and oriented, in no acute distress, resting calmly in stretcher. She is afebrile and nontoxic-appearing and hemodynamically stable. There is significant left-sided facial swelling with erythema and warmth, mild trismus, airway is patent. No significant swelling noted in the neck, no meningismus on exam. No adenopathy. Patient was primarily sent to ED from [facility] with concerns for the facial swelling. She was also being evaluated there for some chest pain ongoing for a year, and had a brief syncopal episode during outpatient lab draw today. She denies any chest pain currently. EKG was reviewed and shows normal sinus rhythm with no acute ischemic changes. Cardiac monitoring: An order was placed for continuous cardiac monitoring. The monitor shows a rate of 80s with normal sinus rhythm. Orders were placed for labs including troponin, UA and urine , chest x- ray, IV Unasyn to treat for cellulitis, CT soft tissue neck with IV contrast to evaluate for facial/jaw swelling. Patient discussed with Dr. Aldrich, who agrees with my assessment, plan, and disposition. Labs and imaging reviewed, labs notable for leukocytosis with no other significant abnormalities. Troponin is negative. TSH was within normal limits. She is not . COVID test was incidentally found to be positive. Chest x-ray was clear with no acute cardiopulmonary abnormalities. I have a low suspicion for acute coronary syndrome or PE related to her ongoing chest pain for the past year. Her syncopal episode was most likely vasovagal due to her blood draw. CT imaging demonstrates moderate left facial and upper neck inflammation consistent with cellulitis, with thickening of the left platysma muscle and enlargement of the left masseter muscle concerning for infectious myositis. No abscess. Airway patent. Patient reassessed multiple times throughout ED stay, she was noted to have a low-grade fever of 37.8 on reassessment of vital signs and feels that her pain is worsening. By my assessment, her left-sided facial swelling appears slightly worse and her trismus has slightly worsened as well. Given the abrupt development of the patient's facial swelling and apparent clinical worsening over the past few hours, I did feel that she warranted admission for close observation and continued IV antibiotics. I spoke on the phone with Dr. Ballesteros, oral surgery, who agreed that the patient should be admitted and he is happy to consult on her case and will see her in the morning. I spoke with Dr. Cm, [facility] Hospitalist, who agrees to evaluate the patient for admission. The patient was updated on all results and plan for admission, she was agreeable to this plan. The patient was stable at the time of admission. The chart was completed utilizing Keego voice recognition software. Grammatical errors, random word insertions, pronoun errors, and incomplete sentences are an occasional consequence of this system due to software limitations, ambient noise, and hardware issues. Any formal questions or concerns about the content, text, or information contained within the body of this dictation should be directly addressed to the nurse practitioner for clarification. Past Med/Surg History Medical History(Updated 11/04/22 @ 01:02 by KYLE Garcia) No significant past medical history Surgical History(Updated 11/03/22 @ 23:06 by Tasha Cm DO) History of wisdom tooth extraction Family History(Updated 11/03/22 @ 23:06 by Tasha Cm DO) Other No significant family history Social History(Updated 11/03/22 @ 23:06 by Tasha Cm DO) Smoking Status: Never smoker Second Hand Exposure: No; Do You Dip or Chew Tobacco: No; Tobacco Cessation Education Requested by Patient: No Hx Alcohol Use: Yes Alcohol type: wine Hx Substance Use: No Preferred Language: Bolivian Communication Ability: Effective Strawhat Sizer Required: No Beliefs That Will Affect Care: None Current Living Situation: Other Current Living Situation Comment: Apartment with roommates Other Information That Helps Us Care for You: No Feels Safe at Home: Yes Safety Concerns: Feels Safe At This Time Assistive Devices: None Allergies Allergies Allergy/AdvReac Type Severity Reaction Status Date / Time No Known Allergies Allergy Unverified 11/03/22 21:03 Home Meds Home Medications Medication Instructions Recorded Confirmed No Known Home Medications 11/03/22 11/03/22 Results & Data (ED) Vital Signs Vital Signs - 24 hr 11/03/22 16:38 11/03/22 19:19 11/03/22 20:30 Temperature 36.6 C B 37.8 C H Temperature Source Temporal Artery Scan Oral Pulse Rate 85 Pulse Rate [Apical] 72 Respiratory Rate 18 12 Respiratory Effort / Characteristics Non-Labored Spontaneous Non-Labored Spontaneous Respiratory Depth Normal Normal Respiratory Pattern Regular Blood Pressure 140/80 Blood Pressure [Left Arm] 108/57 L Blood Pressure Mean 100 Blood Pressure Mean [Left Arm] 74 Blood Pressure Position Sitting Pulse Oximetry 99 100 Oxygen Delivery Method Room Air Room Air Sepsis Recent Fever Within 48 Hours No Sepsis New/Unexplained Change in Mental Status No Sepsis Action Taken by Nursing No Action Required 11/03/22 20:30 11/03/22 20:33 Temperature Temperature Source Pulse Rate 82 Pulse Rate [Apical] 88 Respiratory Rate 19 18 Respiratory Effort / Characteristics Non-Labored Spontaneous Respiratory Depth Normal Respiratory Pattern Regular Blood Pressure Blood Pressure [Left Arm] 116/83 Blood Pressure Mean Blood Pressure Mean [Left Arm] 94 Blood Pressure Position Pulse Oximetry 99 99 Oxygen Delivery Method Room Air Room Air Sepsis Recent Fever Within 48 Hours Sepsis New/Unexplained Change in Mental Status Sepsis Action Taken by Nursing Laboratory Data 11/03/22 18:16 11/03/22 18:16 Lab Results 11/03/22 11/03/22 11/03/22 Range/Units 18:16 18:16 18:16 WBC 12.61 H (4.8-10.8) K/ul RBC 4.53 (4.20-5.40) M/uL Hgb 13.5 (12.0-16.0) g/dl Hct 39.4 (37.0-47.0) % MCV 87.0 (80.0-100.0) fL MCH 29.8 (25.0-34.0) pg MCHC 34.3 (32.0-36.0) g/dL RDW Std Deviation 40.8 (36.4-46.3) fL RDW Coeff of Gordon 13.0 (11.5-14.5) % Plt Count 281 (130-400) K/uL MPV 10.4 (9.4-12.4) fL Immature Gran % (Auto) 0.4 % Neut % (Auto) 76.7 % Lymph % (Auto) 13.0 % [place] % (Auto) 9.4 % Eos % (Auto) 0.1 % Baso % (Auto) 0.4 % Neut # (Auto) 9.67 H (1.40-6.50) K/uL Lymph # (Auto) 1.64 (1.2-3.4) K/uL [place] # (Auto) 1.19 H (0.11-0.59) K/uL Eos # (Auto) 0.01 (0-0.50) K/uL Baso # (Auto) 0.05 (0-0.2) K/uL Immature Gran # (Auto) 0.05 (0.01-0.20) K/uL Sodium 137 (136-145) mmol/L Potassium 3.8 (3.5-5.1) mmol/L Chloride 106 (98-107) mmol/L Carbon Dioxide 26 (21-32) mmol/L Anion Gap 5 (3-11) BUN 9 (6-23) mg/dl Creatinine 0.71 (0.6-1.2) mg/dl Est Cr Clr Drug Dosing 103.7 ml/min Est GFR ( Amer) 141.1 ml/min Est GFR (Non-Af Amer) 121.8 ml/min BUN/Creatinine Ratio 12.7 (10-20) Glucose 103 H (70-99(Fasting)) mg/dl Calcium 9.9 (8.5-10.1) mg/dl Total Bilirubin 1.9 H (0.2-1.0) mg/dl AST 14 (13-39) U/L ALT 8 (7-52) U/L Alkaline Phosphatase 62 (34-104) U/L Troponin I High Sens < 2.3 (0-14) pg/ml Total Protein 7.5 (6.0-8.3) gm/dl Albumin 4.5 (3.4-5.0) gm/dl Globulin 3.0 (2.5-4.0) gm/dl Albumin/Globulin Ratio 1.5 (0.9-2) TSH 1.108 (0.300-4.500) uIu/ml Administered Medications Ampicillin Sodium/Sulbactam Sodium 3,000 mg/ Sodium Chloride 108 mls @ 200 mls/hr IV Q6H CHERYLE; Protocol Stop: 11/14/22 00:00 Last Admin: 11/04/22 00:43 Dose: 200 mls/hr Documented By: MARA Lactated Ringer's (Lr) 1,000 mls @ 80 mls/hr IV .[id number] CHERYLE Stop: 11/04/22 11:47 Last Infusion: 11/04/22 00:44 Dose: 0 mls/hr Documented By: Admin: 11/03/22 23:18 Dose: 80 mls/hr Documented By: MARA Discontinued Medications Ampicillin Sodium/Sulbactam Sodium 3,000 mg/ Sodium Chloride 108 mls @ 200 mls/hr IV NOW STA; Protocol Stop: 11/03/22 18:14 Last Infusion: 11/03/22 19:50 Dose: 0 mls/hr Documented By: order entry administrator: 11/03/22 18:45 Dose: 200 mls/hr Documented By: NIC Sodium Chloride (Nss 1000ml) 1,000 mls @ 999 mls/hr IV .Q1H1M ONE Stop: 11/03/22 21:38 Last Infusion: 11/03/22 23:53 Dose: 0 mls/hr Documented By: Admin: 11/03/22 21:18 Dose: 999 mls/hr Documented By: BRITTANY Sodium Chloride (Nss 1000ml) 1,000 mls @ 125 mls/hr IV .Q8H CHERYLE Stop: 12/03/22 20:44 Last Admin: 11/03/22 23:53 Dose: Not Given Documented By: YOSEPH Ioversol (Optiray 350 100ml) 87 ml IV ONCE ONE Stop: 11/03/22 19:28 Last Admin: 11/03/22 19:28 Dose: 87 ml Documented By: AUDRA Ketorolac Tromethamine (Ketorolac Tromethamine 15 Mg/Ml Vial) 15 mg IV NOW STA Stop: 11/03/22 20:39 Last Admin: 11/03/22 21:21 Dose: 15 mg Documented By: BRITTANY Allergies Allergy/AdvReac Type Severity Reaction Status Date / Time No Known Allergies Allergy Unverified 11/03/22 21:03 Home Medications Medication Instructions Recorded Confirmed Type No Known Home Medications 11/03/22 11/03/22 History Patient History Medical History No significant past medical history Surgical History History of wisdom tooth extraction Family History Other No significant family history Social History Smoking Status: Never smoker Second Hand Exposure: No; Do You Dip or Chew Tobacco: No; Tobacco Cessation Education Requested by Patient: No Hx Alcohol Use: Yes Alcohol type: wine Hx Substance Use: No Preferred Language: Bolivian Communication Ability: Effective Strawhat Sizer Required: No Beliefs That Will Affect Care: None Current Living Situation: Other Current Living Situation Comment: Apartment with roommates Other Information That Helps Us Care for You: No Feels Safe at Home: Yes Safety Concerns: Feels Safe At This Time Assistive Devices: None Results & Data ([facility]) Vital Signs (Past 12 Hours) Vital Signs Temp Pulse Pulse Resp BP BP Pulse Ox 11/04/22 08:42 36.8 C 76 18 100/64 98 11/04/22 08:00 11/03/22 23:15 11/03/22 23:15 11/03/22 23:15 37 C 80 16 95/62 L 99 11/03/22 22:42 88 116/83 99 O2 Del Method 11/04/22 08:42 Room Air 11/04/22 08:00 Room Air 11/03/22 23:15 Room Air 11/03/22 23:15 Room Air 11/03/22 23:15 Room Air 11/03/22 22:42 Room Air PG Care Time/CCT Total # of Minutes Spent Total Time Spent with Patient: Total time spent is greater than 50% in coordination of care (as documented) at patient's floor/unit and/or counseling patient: Coding Level of Care Code OFFICE CONSULT LVL 3, 30 MIN
--- NOTE | 2022-11-04 14:23 | Hospitalist Progress Note ---
Date of Service November 04, 2022 Assessment & Plan (1) Dental abscess: Plan: 22yo female with recent history of wisdom teeth extraction x 4 approximately 6 weeks ago presenting with left sided facial pain and swelling. Patient afebrile, HD stable, overall non-toxic in appearance. She does have significant swelling and erythema of her left face with some tenderness of left neck as well. WBC=12.61 on admission Patient is POSITIVE for Covid-19 which may be cause of her possible myositis but more likely bacterial infection from dental infection CT face w/ swelling, possible infectious myositis Improving with IV antibiotics Appreciate OMFS consult-plan for I&D today -continue Unasyn 2gm IV q 6 -Toradol PRN pain -Tylenol PRN fever (2) Myositis: Plan: CPK normal (3) COVID: Plan: Patient is POSITIVE for Covid-19 infection. Afebrile, no respiratory complaints at present. -Maintain isolation -Monitor respiratory status -Tylenol PRN no remdesevir as not sure of timeline and not high risk for progression to severe disease-no comorbidities no decadron indicated Plan Dispo-discussed care with parents on phone. Plan to keep overnight and advance diet after surgery, dc to home in AM Admission and Anticipated Discharge Date Admission Date: November 03, 2022 Subjective Pt feeling better today, less pain, less swollen in the face and neck. No runny nose, sore throat, cough, SOB,chest pain, nausea. Review of Systems Review of Systems: All systems reviewed & are unremarkable except as noted in HPI & below Physical Exam Constitutional: WD/WN, vitals as above Eyes: + anicteric sclerae ENMT: Mouth: + oropharynx abnormality (purulent discharge left gums) Neck: + abnormal visual inspection (mild swelling left anterior neck) Respiratory: normal respiratory effort, lungs clear to auscultation Cardiovascular: RRR, no murmur, no edema Results & Data Results & Data ([facility]) Vital Signs (Past 12 Hours) Vital Signs Temp Pulse Resp BP Pulse Ox O2 Del Method 11/04/22 08:42 36.8 C 76 18 100/64 98 Room Air 11/04/22 08:00 Room Air Laboratory Results CBC and BMP reviewed, CPK normal PG Care Time/CCT Total # of Minutes Spent Total Time Spent with Patient: Total time spent is greater than 50% in coordination of care (as documented) at patient's floor/unit and/or counseling patient: Coding Level of Care Code 44156 SUB INP/OBS CARE MIN Diagnoses Dental abscess K04.7 Myositis M60.9 COVID U07.1
[2022-11-04] MEDS ORDERED: MIDAZOLAM HCL 1 MG/ML 2ML VIAL ONE (14:49)
[2022-11-04] MEDS ORDERED: ROCURONIUM BROMIDE 10 MG/ML 5 ML VIAL IV ONE (14:49)
[2022-11-04] MEDS ORDERED: PROPOFOL IV EMULSION 10 MG/ML 20 ML VIAL IV ONE (14:49)
[2022-11-04] MEDS ORDERED: ONDANSETRON INJ 2 MG/ML 2 ML VIAL ONE (14:49)
[2022-11-04] MEDS ORDERED: fentaNYL citrate 100 MCG/2 ML VIAL ONE (14:49)
[2022-11-04] MEDS ORDERED: DEXAMETHASONE SOD INJ 4 MG/ML VIAL ONE (14:49)
[2022-11-04] MEDS ORDERED: LIDOCAINE 2% MPF LOCAL 5 ML VIAL INFIL ONE (14:49)
[2022-11-04] MEDS ORDERED: GLYCOPYRROLATE 0.2 MG/ML VIAL ONE (14:50)
[2022-11-04] MEDS ORDERED: NEOSTIGMINE METHYLSULFATE 1 MG/ML 10ML VIAL ONE (14:50)
[2022-11-04] MEDS ORDERED: CHLORHEXIDINE GLUCONATE 0.12% 480 ML MT ONE (14:54)
[2022-11-04] MEDS ORDERED: ATROPINE SULFATE 0.1 MG/ML 10ML SYR IV PRN (15:09)
[2022-11-04] MEDS ORDERED: ePHEDrine sulfate 50 MG/ML AMP IV PRN (15:09)
[2022-11-04] MEDS ORDERED: ONDANSETRON INJ 2 MG/ML 2 ML VIAL IV PRN (15:09)
[2022-11-04] MEDS ORDERED: fentaNYL citrate 100 MCG/2 ML VIAL IV PRN (15:09)
--- NOTE | 2022-11-04 15:09 | Anesthesiology Consultation ---
Date of Service November 04, 2022 Assessment & Plan Chart Review Chart Review: Acceptable Risk for Surgery and Patient NOT seen in Pre Admission Testing Consults Requested none History Surgery Operation Date: 11/04/22 11:10 Proposed Procedures p Incision and Drainage Left Mandible - Alexis Hameed Lesli, DMD Height/Weight Height: 5 ft 3 in Weight: 60.8 kg Allergies Allergy/AdvReac Type Severity Reaction Status Date / Time No Known Allergies Allergy Unverified 11/03/22 21:03 Medications Home Medications Medication Instructions Recorded Confirmed Last Taken No Known Home Medications 11/03/22 11/03/22 Unknown Active Medications Generic Name Dose Route Start Last Admin Trade Name Freq PRN Reason Stop Dose Admin Ampicillin Sodium/Sulbactam 108 mls @ 200 mls/hr 11/04/22 00:00 11/04/22 12:26 Sodium 3,000 mg/ Sodium IV 11/14/22 00:00 Infused Chloride Q6H CHERYLE Infusion Protocol NPO Date Last Intake of Fluids: 11/03/22 Time Last Intake of Fluids: 19:00 Date Last Intake of Solids: 11/03/22 Time Last Intake of Solids: 12:00 Past Medical History Medical History No significant past medical history Past Family History Family History Other No significant family history Past Surgical History Surgical History History of wisdom tooth extraction Social History Smoking Status: Never smoker Do You Dip or Chew Tobacco: No Hx Alcohol Use: Yes Alcohol type: wine alcohol intake frequency: a few times a month Hx Substance Use: No substance use type: does not use Physical Exam Vital Signs Last Vital Signs Temp 98.8 F 11/04/22 14:26 Pulse 76 11/04/22 14:26 Resp 18 11/04/22 14:26 BP 109/49 L 11/04/22 14:26 Pulse Ox 96 11/04/22 14:26 O2 Del Method 11/04/22 14:26 Testing Laboratory Results 11/04/22 05:37 11/04/22 05:37 Urine Color Yellow 11/03/22 Unknown Urine Appearance Clear (Clear) 11/03/22 Unknown Urine pH 6.0 (4.5-7.5) 11/03/22 Unknown Ur Specific [place] 1.010 (1.000-1.030) 11/03/22 Unknown Urine Protein Negative (Negative) 11/03/22 Unknown Urine Glucose (UA) Negative (Negative) 11/03/22 Unknown Urine Ketones Negative (Negative) 11/03/22 Unknown Urine Nitrite Negative (Negative) 11/03/22 Unknown Ur Leukocyte Esterase Trace (Negative) H 11/03/22 Unknown Urine WBC (Auto) 1-5 /hpf (0-5) 11/03/22 Unknown Urine RBC (Auto) 5-10 /hpf (0-4) H 11/03/22 Unknown U Hyaline Cast (Auto) 1-5 /lpf (0-5) 11/03/22 Unknown U Epithel Cells (Auto) 10-20 /lpf (0-5) H 11/03/22 Unknown Urine Bacteria (Auto) Negative (Negative) 11/03/22 Unknown Urine Test Negative (Negative) 11/03/22 Unknown 11/03/22 Unknown Urine Test Negative
[2022-11-04] MEDS ORDERED: DexMEDEtomidine HCL IV 100 MCG/ML VIAL IV ONE (15:10)
[2022-11-04] MEDS ORDERED: ACETAMINOPHEN 1000 MG/100 ML IV IV ONE (15:10)
--- NOTE | 2022-11-04 15:21 | History & Physical Bridge Note ---
Date of Service November 04, 2022 History & Physical Bridge Note I have examined the patient, reviewed the History & Physical and in the interval since the performance of the History & Physical I have noted the following changes of clinical significance: no changes noted OK for the I&D left side
[2022-11-04] MEDS ORDERED: BUPIVACAINE/EPINEPHRINE 0.5% 1:200,000 1.8 ML CARP ONE (15:23)
[2022-11-04] MEDS ORDERED: SUGAMMADEX SODIUM 200 MG/2 ML VIAL IV ONE (16:20)
--- NOTE | 2022-11-04 16:31 | Post Operative Brief Note ---
PG Immediate Post Op with CF Date of Surgery November 04, 2022 Pre & Post Diagnosis Operation Date: 11/04/22 11:10 Pre-Op Diagnosis: Left facial cellulitis Post-Op Diagnosis: Left facial cellulitis I identified the patient and participated in the time-out.: Yes Procedure Operation Date: 11/04/22 11:10 Actual Procedures p Incision and Drainage Left Mandible - Alexis Ballesteros, DILIA Surgeon Alexis Ballesteros, DILIA [employer] Tr[employer] Worker none Estimated Blood Loss 3 Findings Consistent with Post-Op Diagnosis grossly infected left jaw # 17 area with necrotic tissue w/in the infected socket =localized osteo noted Specimens Specimen Description: a. post surgical wound infection left jaw Anesthesia Type General Complications none
--- NOTE | 2022-11-04 17:07 | Anesthesiology Progress Note ---
Date of Service November 04, 2022 Anesthesia Post Procedure Vital Signs Vital Signs: Temp Pulse Pulse Pulse Resp BP BP 11/04/22 16:50 72 20 110/59 L 11/04/22 17:00 67 20 114/62 11/04/22 16:40 71 16 116/63 11/04/22 16:38 98.6 F 78 20 125/64 11/04/22 14:26 98.8 F 76 18 109/49 L 11/04/22 08:42 98.2 F 76 18 100/64 11/04/22 08:00 11/03/22 23:15 11/03/22 23:15 11/03/22 23:15 98.6 F 80 16 95/62 L 11/03/22 22:42 88 116/83 11/03/22 20:33 82 18 11/03/22 20:30 88 19 116/83 11/03/22 20:30 100.0 F H 11/03/22 19:19 72 12 108/57 L Pulse Ox O2 Del Method O2 Flow Rate 11/04/22 16:50 100 Oxymask 3 11/04/22 17:00 97 Room Air 11/04/22 16:40 100 Oxymask 6 11/04/22 16:38 100 Oxymask 6 11/04/22 14:26 96 Room Air 11/04/22 08:42 98 Room Air 11/04/22 08:00 Room Air 11/03/22 23:15 Room Air 11/03/22 23:15 Room Air 11/03/22 23:15 99 Room Air 11/03/22 22:42 99 Room Air 11/03/22 20:33 99 Room Air 11/03/22 20:30 99 Room Air 11/03/22 20:30 11/03/22 19:19 100 Room Air Pain Intensity Left Jaw: Pain Intensity: 5 Transfer of Care Handoff Completed per policy Notes Mental Status: alert / awake / arousable and participated in evaluation Patient Amnestic to Procedure: Yes Nausea / Vomiting: adequately controlled Pain: adequately controlled Airway Patency, RR, SpO2: stable & adequate BP & HR: stable & adequate Hydration State: stable & adequate Anesthetic Complications: no major complications apparent and Pt Satisfied with anesthetic care
[2022-11-04] MEDS ORDERED: CHLORHEXIDINE GLUCONATE 0.12% 480 ML MT PRN (18:01)
--- NOTE | 2022-11-04 22:02 | Operative Report ---
PG Post Operative Report Pre & Post Diagnosis Operation Date: 11/04/22 11:10 Pre-Op Diagnosis: Left facial cellulitis Post-Op Diagnosis: Left facial cellulitis I identified the patient and participated in the time-out.: Yes Procedure Operation Date: 11/04/22 11:10 Actual Procedures p Incision and Drainage Left Mandible - Alexis Ballesteros DMD Surgeon Alexis Ballesteros DMD [employer] Custodian none Estimated Blood Loss 3 Findings Consistent with Post-Op Diagnosis Specimens infected hard and soft tissue from infected surgical site (lower left posterior mandible) Drains none Anesthesia Type General Complications none Indications post op infection lower left side # 17 Description of Procedure Actual Procedures p Incision and Drainage Mandibular space abscess and Submandibular Abscess; Debridment of open wound mouth of necrotic soft tissue and bone - Alexis Ballesteros DMD CPT 30364 Incision and Drainage Mandibular space abscess and Submandibular Abscess CPT 34228 Debridement of necrotic tissue and bone from non healing infected extraction site ICD10 S01.5 Infected open wound of the mouth Once cleared for surgery general anesthesia was achieved, the eyes were protected by the anesthesia dept criteria. A time out was take for patient ID, antibiotics, equipment and position verification once all agreed the procedure began. Local anesthesia using Marcaine with a vasoconstrictor ( 1.8 ml per site) given into left inferior alveolar nerve A throat pack was placed after the oral cavity was irrigated with saline. Once a surgical level of anesthesia was obtained and the local anesthesia was given time for the blocks the surgery was started. I turned my attention to the infection which was located in the left mandibular space and subperiosteal space associated with psot extraction # 17 wisdom tooth. Incision and Drainage of infection and debridement of necrotic bone/soft tissue at infected site # 17 Using a 15 blade an incision was made around teeth # 20-post retromolar area into mandibular space. Once the incision was made a lot of pus extruded from the site. A curved hemostat was carefully placed into the infected space along the lateral side of the lower jaw and into the subperiosteal space, mandibular space and submandibular space. Some further drainage was now allowed to escape. I palpated the cheek and no further drainage was expressed. It was noted that the extraction site was filled with necrotic bone and soft tissue. The surrounding bone was soft, this was an open wound filled with necrotic tissue and debris. With a large curet I was able to clean out the socket which did not heal. the soft and hard tissue was removed until ther ewas established health bleeding bone. The lateral aspect of the posterior mandible was also curetted until health bone was reached. The quality of the bone appeared to be a localized osteomyelitics - once the ne crotic bone was removed health bleeding bone was found. The bone was filled smooth, the soft tissue was excised to obtain a tension free closure. The area was irrigated with at least 200 ml of NS solution. Using a 2-0 chromic suture primary closure was obtained. I inspected the sites to insure all bleeding was controlled. I removed the throat pack and suctioned the throat aN oG tube was placed. A gauze pressure dressings were placed. All instrument and sponge count was correct. the patient was allowed to awake from the anesthesia. Once full awake the anesthesia tube was removed and the patient was taken to the recovery room with all vital sign stable. The patient tolerated the surgery very well. I will follow the patient in my office, Rx and instructions will be given upon discharge. I called Mrs. Reis informing her of what was done and reassure her regarding Elise`s condition I attest to the content of the Intraoperative Record and any orders documented therein. Any exceptions are noted below.
[2022-11-04] MEDS: HYDROCODONE/ACETAMOPHEN 5/325MG TAB PO PRN (23:52)
[2022-11-05] MEDS: AMPICILLIN/SULBACTAM SOD 3,000 MG in 0.9 % SODIUM CHLORIDE 100 ML IV SCH ×2 (05:26→12:45)
[2022-11-05] MEDS: HYDROCODONE/ACETAMOPHEN 5/325MG TAB PO PRN (06:11)
--- NOTE | 2022-11-05 09:34 | Oral/Maxillofacial Progress Nt ---
Date of Service November 05, 2022 Assessment & Plan Admission and Anticipated Discharge Date Admission Date: November 03, 2022 Subjective Post Op infection evaluation 24 hours The infected area has responded very well Swelling is much less and softer and the oral tissue looks great No drainage is noted. pathology pending Infection has responded very well to the antibiotics/ debridement and the I and D. I requested that the patient continue with massage, heat and wound care. At this time the area has responded very well RTC 10-14 days OK for Discharge today--in care of her parents Rx Augmentin 875 x 10 days Results & Data ([facility]) Vital Signs (Past 12 Hours) Vital Signs Temp Pulse Resp BP Pulse Ox O2 Del Method 11/05/22 08:15 36.6 C 64 16 99/64 L 97 Room Air 11/05/22 04:00 36.8 C 68 16 98/59 L 99 Room Air 11/04/22 21:35 Room Air 11/04/22 21:35 36.8 C 69 16 96/61 L 97 Room Air PG Care Time/CCT Total # of Minutes Spent Total Time Spent with Patient: Total time spent is greater than 50% in coordination of care (as documented) at patient's floor/unit and/or counseling patient: Coding Level of Care Code None
--- NOTE | 2022-11-05 13:27 | Discharge Summary ---
Date of Service November 05, 2022 Admission HPI Per Admitting Provider Elise Reis is a 22yo female with recent extraction of 4 impacted wisdom teeth - performed approximately 2 months ago in [place], [place]. She reports that the surgery went well with no complications. She did state that she had ongoing oral pain at the extraction sites for approximately one month after her surgery. Last night 11/02/22 around 23:00 she developed some pain on the left side of her face. She noticed some swelling that started early this morning 11/03/22 around 02:00. Her swelling has progressed. She has some difficulty opening her mouth fully. She had some subjective fevers as well. Denies chest pain, cough, SOB, abdominal pain, nausea, vomiting, diarrhea or constipation. No pain or difficulty swallowing. No change in voice. No numbness or swelling of her mouth, throat or sublingual area. Upon arrival to the ER she is afebrile, HD stable, NAD. ER Course: Unasyn NSS x 1L Toradol 15mg Principal Diagnosis Infectious myositis and osteomyelitis, (possibly/likely) a complication of wisdom teeth extraction Discharge Exam Constitutional WD/WN, vitals as above Eyes + anicteric sclerae Neck + abnormal visual inspection (mild swelling left cheek, improved) Respiratory normal respiratory effort, lungs clear to auscultation Cardiovascular RRR, no murmur, no edema Discharge Data Allergies Allergy/AdvReac Type Severity Reaction Status Date / Time No Known Allergies Allergy Unverified 11/03/22 21:03 Consultations 11/03/22 20:43 ED Decision to Admit Stat 11/03/22 23:18 Consult Oromaxillofacial Surgery Routine Procedures Performed Operation Date: 11/04/22 11:10 Actual Procedures p Incision and Drainage Left Mandible - Alexis Ballesteros DMD Ordered Studies 11/03/22 17:42 CT soft tissue neck w con Stat Hospital Course (1) Dental abscess: 22yo female with recent history of wisdom teeth extraction x 4 approximately 6 weeks ago presenting with left sided facial pain and swelling. Patient afebrile, HD stable, overall non-toxic in appearance. She does have significant swelling and erythema of her left face with some tenderness of left neck as well. WBC=12.61 on admission Patient is POSITIVE for Covid-[address] face w/ swelling Infectious myositis, (possibly/likely) a complication of wisdom teeth extraction s/p I&D by OMFS on 11/04 and was found to have some OM of jaw,debrided Much improved with IV antibiotics/Unasyn, I&D stable for dc to home with po Augmentin x 10 day course f/u withOMFS 1-2 weeks use peridex rinse tylenol and ibuprofen prn pain (2) Myositis: CPK normal infectious, from dental infection (3) COVID: Patient is POSITIVE for Covid-19 infection. Afebrile, no respiratory complaints at present. symptomatic no remdesevir as not sure of timeline and not high risk for progression to severe disease-no comorbidities no decadron indicated Plan Dispo-discussed care with parents at bedside on day of discharge, doing well, stable for dc to home Total Time Total Time Spent Total Time Spent (In Minutes): 35 min Discharge Plan Discharge Items Patient Disposition: Home - Self-Care Reason For Visit: LEFT FACIAL CELLULITIS Discharge Diagnosis: s/p facial infection [id number] Condition on Discharge: Good Activity: Resume your previous activity Lifting: Gradually increase as tolerated Bathing: No limitations Exercise/Sports: Gradually increase as tolerated Driving/Machine Use: Resume 1 day after discharge Weightbearing: Full weightbearing Non-emergency contact: Surgeon Call non-emergency contact if: your temperature is above 101.5, your wound has increased redness, your wound has increased drainage and your wound pain has increased Follow-up/Referrals: Alexis Ballesteros, DMD [Physician] - Outside,Provider [Primary Care Provider] - Diet: Regular Diet Texture: Easy to Chew Addtl Attending Provider Instructions: ADDITIONAL ACTIVITY RECOMMENDATIONS: * [place] teeth after every meal. It is very important to keep your mouth clean to prevent infection. * Starting tonight rinse with the Peridex as directed then 2 x a day * it is very important to keep well hydrated, this prevents fever and possible dry socket pain SPECIAL CARE INSTRUCTIONS: *It is not uncommon that between day 2-4 that your swelling will be at its worst this is very normal, do not be alarmed. *apply heat (hot water bottle or heating pad) for the next two days, as often as possible. * Tomorrow start rinsing your mouth with 1/2 teaspoon salt in 8 ounces warm water. This rinse should be used every 4-6 hours. * Some swelling is common. It should gradually decrease within 4-5 days. * A certain amount of bleeding is to be expected. It is often possible to control mild oozing by placing folded gauze over the area and biting down for 30 minutes. If you are unable to control excessive bleeding, call Dr Ballesteros at [phone] * You may experience some discomfort for a few days. If pain or swelling increases, Call Dr Ballesteros * Return to the office for a follow up check up on: Nov 20 at 3 pm * office address--[address] phone # [phone] Addtl [employer] Director Provider Instructions: Finish out the course of antibiotics as prescribed. You can take ibuprofen or acetaminophen as needed for pain. Pending Studies at Discharge: Yes Studies:: pathology Stand-Alone Forms: My [facility] [employer], Smoking Cessation Medications and DC Order Prescriptions: Continued amoxicillin-pot clavulanate 875-125 mg tablet 1 tab PO Q12H Qty: 20 0RF Discharge Orders: Discharge Order (Routine); Ordered 11/05/22 Ordered By: Amy Jones/Other Patient Handouts: [place] [facility]- Your Recovery, Dental Abscess Facial Cellulitis Admission Data Admit Date/Time: 11/03/22 20:51 Attending Provider: Amy Garcia Admit Provider: Tasha Cm Primary Care Provider: Outside,Provider Other Providers: Tasha Cm ; Alexis Ballesteros Other Interventions: Discharge Summary Assessment (RN) Last Done: 11/05/22 09:59 Coding Level of Care Code HOSP INP/OBS DISCH >30 MIN Diagnoses Dental abscess K04.7 Myositis M60.9 COVID U07.1
== END 2022-11-05 13:57 | disposition home or self-care (01) | DRG 856 ==
LOC: ED 16:32 → SUATTDRO 20:51 → 3E 20:51